=== PATIENT | female | born 1940 | race Caucasian/White ===

== ENCOUNTER 2016-12-08 15:31 | Inpatient (IN) | payer OTHER, MEDICARE ==
[~2016-12-08] VITALS: Ht 157.5 cm; Wt 61.0 kg
[2016-12-14] MEDS ORDERED: COZA50TA PO (11:57)
[2016-12-14] MEDS ORDERED: INSU1.2I SQ (11:57)
[2016-12-14] MEDS ORDERED: OMEP20TA PO (11:57)
[2016-12-14] MEDS ORDERED: ASPI325T PO (11:57)
[2016-12-14] MEDS ORDERED: PRAV20TA2 PO (11:57)
[2016-12-14] MEDS ORDERED: VITA100018 PO (11:57)
[2016-12-14] MEDS ORDERED: SITA1TAB2 PO (11:57)
[2016-12-14] MEDS ORDERED: METO50TA11 PO (11:57)
[2016-12-16] MEDS ORDERED: PROPOFOL 200 MG/20 ML AMP IV ONE (12:00)
[2016-12-16] MEDS ORDERED: metroNIDAZOLE 500 MG INJ 100 ML IV SCH (12:00)
[2016-12-16] MEDS ORDERED: PHENYLEPH/NS 1000 MCG/10 ML SYR IV ONE (12:00)
[2016-12-16] MEDS ORDERED: LACTATED RINGER'S 1000 ML INJ 1,000 ML IV ONE (12:00)
[2016-12-16] MEDS ORDERED: ceFAZolin 1,000 MG/NS 100 ML IV SCH ×2 (12:00)
[2016-12-16] MEDS ORDERED: ONDANSETRON HCL 4 MG/2 ML VIAL IV PUSH ONE (12:00)
[2016-12-16 12:08] VITALS: BP 168/69; PULSE 74; RESP 18; TEMP 98.7; O2SAT 99
[2016-12-16] MEDS ORDERED: CHLORHEXIDINE GLUCONATE 2 % 1 PACK (2 CLOTHS) TOPICAL PRN (12:15)
[2016-12-16] MEDS ORDERED: ALVIMOPAN 12 MG CAPSULE - On Call PO SCH (12:15)
[2016-12-16] MEDS ORDERED: DEXT 5%-NACL 0.9% 1000 ML INJ 1,000 ML IV SCH (12:15)
[2016-12-16] MEDS ORDERED: INSULIN HUMAN REGULAR 1,000 UNITS/10 ML VIAL SQ PRN (12:15)
[2016-12-16] MEDS ORDERED: METOPROLOL TARTRATE 25 MG TAB PO PRN (12:15)
[2016-12-16] MEDS ORDERED: SODIUM CHLORID 0.9% 500 ML IV PRN (12:15)
[2016-12-16] MEDS ORDERED: LACTATED RINGER'S 1000 ML IV PRN (12:15)
[2016-12-16] MEDS ORDERED: POVIDONE IODINE 5% (ANTISEPSIS KIT) 4 APPLICATIONS EACH NARE PRN (12:15)
--- NOTE | 2016-12-16 13:05 | PD.HP.UP ---
H&P Update Note The Pre-Admit History and Physical Examination regarding the above named patient was reviewed (including, but not limited to, vital signs, heart, lungs, co-morbid conditions), and upon re-examination it is noted that: the patient's condition has not significantly changed since the last examination. Uriah Santana MD Dec 16, 2016 13:05
[2016-12-16] MEDS ORDERED: FAMOTIDINE 20 MG/2 ML VIAL ONE (13:24)
[2016-12-16] MEDS: DEXTROSE 5%-LACTATED RING INJ 1,000 ML IV SCH (14:44)
[2016-12-16] MEDS ORDERED: POTASSIUM CHLOR 20 MEQ PREMIX 100 ML IV PRN (14:45)
[2016-12-16] MEDS ORDERED: MORPHINE SULFATE 30 MG/30 ML PCA IV SCH (14:45)
[2016-12-16] MEDS ORDERED: BENZOCAINE 6 MG/MENTHOL 10 MG LOZENGE BUCCAL PRN (14:45)
[2016-12-16] MEDS: PCA - TOTAL MG MORPHINE DELIVERED PER SHIFT SCH ×2 (14:45→21:15)
[2016-12-16] MEDS ORDERED: ONDANSETRON HCL 4 MG/2 ML VIAL IV PRN (14:45)
[2016-12-16] MEDS ORDERED: ACETAMINOPHEN/HYDROcodone 325 MG/5 MG TAB PO PRN ×2 (14:45)
[2016-12-16] MEDS ORDERED: NALOXONE HCL 0.4 MG/ML AMP IV PRN (14:45)
[2016-12-16] MEDS ORDERED: SODIUM CHLORIDE 0.9% FLUSH 10 ML FLUSH IV FLUSH PRN (14:45)
[2016-12-16] MEDS ORDERED: POTASSIUM CHLOR 40 MEQ PREMIX 100 ML IV PRN (14:45)
[2016-12-16] MEDS ORDERED: Post-op Orders (for Pharmacy) MISC XX ONE (14:55)
[2016-12-16] MEDS ORDERED: DO NOT ADM ANY ANTICOAGULANT DRUGS PRN (14:55)
[2016-12-16] MEDS ORDERED: fentaNYL CITRATE 250 MCG/5 ML AMP ONE (15:02)
[2016-12-16] MEDS ORDERED: METOCLOPRAMIDE HCL 10 MG/2 ML VIAL ONE (15:03)
[2016-12-16 15:16] LABS: AUTOMATED NEUTROPHIL # 4.6 TH/MM3 (1.8-7.7); BASOPHIL # 0.1 TH/MM3 (0-0.2); BASOPHIL % 0.9 % (0.0-2.0); EOSINOPHIL # 0.1 TH/MM3 (0-0.4); EOSINOPHIL % 1.4 % (0.0-4.0); HEMATOCRIT 34.1 % (35.0-46.0); HEMO FLAGS DIFF FINAL; LYMPH % 24.7 % (9.0-44.0); LYMPHOCYTE # 1.7 TH/MM3 (1.0-4.8); MEAN CORPUSCULAR HEMOGLOBIN 26.6 PG (27.0-34.0); MEAN CORPUSCULAR HGB CONC 32.4 % (32.0-36.0); MONO % 6.8 % (0.0-8.0); NEUT % 66.2 % (16.0-70.0); PLATELET COUNT 213 TH/MM3 (150-450); RED BLOOD COUNT 4.16 MIL/MM3 (4.00-5.30); RED CELL DISTRIBUTION WIDTH 14.6 % (11.6-17.2)
[2016-12-16] MEDS ORDERED: *ENALAPRILAT 1.25 MG/ML VIAL PERIprocedural Use ONLY ONE (15:36)
[2016-12-16 15:46] LABS: BICARBONATE 23.7 MEQ/L (21.0-32.0); POTASSIUM 4.6 MEQ/L (3.5-5.1)
[2016-12-16] MEDS ORDERED: *ONDANSETRON 4 MG VIAL PERIprocedural Use ONLY ONE (16:25)
[2016-12-16] MEDS ORDERED: METOCLOPRAMIDE HCL 10 MG/2 ML VIAL IVS SCH (18:00)
--- NOTE | 2016-12-16 18:00 | MP ---
cc: BETTY SANTANA M.D. DATE OF SURGERY: 12/16/2016. PREOPERATIVE DIAGNOSIS: Fecal impaction and constipation. POSTOPERATIVE DIAGNOSIS: Chronic fecal impaction and constipation. PROCEDURE: Diverting loop sigmoid colostomy with disimpaction and irrigation of distal colon. SURGEON: Betty Santana M.D. EVALUATION ENGINEER: Raheel Crabtree MD. ESTIMATED BLOOD LOSS: Minimal. OPERATIVE FINDINGS: This patient has had a chronic fecal impaction, sometimes not moving her bowels for months. She has undergone multiple disimpactions by Dr. Crabtree. For this reason, discussion with her and her family, we recommended diverting sigmoid colostomy. All other measures had been previously tried including laxatives and the patient was totally unresponsive due to chronicity. At surgery, the rectum was first disimpacted of all stool that could be removed and then the diverting loop colostomy was done. A distal washout was done prior to closing the distal limb and maturing the colostomy. DESCRIPTION OF THE PROCEDURE IN DETAIL: The patient was placed on the table in the supine position after adequate general endotracheal anesthesia, her legs were placed in the perineal lithotomy position and a rectal exam was done disimpacting the stool from the rectum of a large quantity of stool fully emptying the rectum; however, there was still stool up in the sigmoid. At this point, the abdomen was prepped and draped in the usual manner and a circular incision was made in the left lower quadrant and the anterior rectus sheath was incised longitudinally. The rectus muscles were split and the posterior sheath was opened entering the peritoneal cavity. The sigmoid colon was identified in the left gutter and pulled up with a Heri clamp and with the redundancy of the colon it was brought through the stoma site and a window was created in the mesentery with electrocautery. Once the sigmoid was mobilized a short distance along its lateral pelvic peritoneum, it easily stayed up in the wound and no colostomy bar was necessary. The colon was then opened transversely and a 24-Persian red rubber catheter was placed down the distal limb and it was irrigated thoroughly with a liter of saline solution with Dr. Crabtree below and all stool in the lower sigmoid and rectum was evacuated until the effluent was clear. Once this was done, the distal segment was stapled closed with a TX-60 blue staple height stapler and then the colostomy was matured with interrupted 3-0 Vicryl sutures. A 57 mm colostomy appliance was applied. Sponge, needle and instrument counts were correct. The estimated blood loss was minimal. The patient tolerated the procedure well and left the operating room in good condition. MD TEMO Cedeño/CHECO /3:59 PM /5:58 PM
[2016-12-16 20:00] VITALS: BP 174/88; PULSE 74; PULSE 77; RESP 20; TEMP 97.7; O2SAT 98
[2016-12-16 21:00] VITALS: PULSE 74
[2016-12-16] MEDS: SODIUM CHLORIDE 0.9% FLUSH 10 ML FLUSH IV FLUSH SCH (21:00)
[2016-12-16] MEDS: METOCLOPRAMIDE HCL 10 MG/2 ML VIAL IVS SCH (21:00)
[2016-12-16] MEDS: ENALAPRILAT 1.25 MG/ML VIAL IV PUSH PRN (21:26)
[2016-12-16 22:00] VITALS: PULSE 74
[2016-12-16 23:00] VITALS: PULSE 74
[2016-12-17] VITALS (17 sets, daily range): BP systolic 144–171; BP diastolic 63–89; PULSE 68–86; RESP 16–20; TEMP 96.9–98.6; O2SAT 95–100
[2016-12-17] MEDS: DEXTROSE 5%-LACTATED RING INJ 1,000 ML IV SCH ×2 (00:46→10:44)
[2016-12-17] MEDS: METOCLOPRAMIDE HCL 10 MG/2 ML VIAL IVS SCH ×4 (03:00→22:07)
[2016-12-17] MEDS: PCA - TOTAL MG MORPHINE DELIVERED PER SHIFT SCH ×2 (03:01→14:00)
[2016-12-17] MEDS: ENALAPRILAT 1.25 MG/ML VIAL IV PUSH PRN (03:11)
[2016-12-17 06:47] LABS: AUTOMATED NEUTROPHIL # 4.7 TH/MM3 (1.8-7.7); BASOPHIL % 0.7 % (0.0-2.0); EOSINOPHIL % 0.3 % (0.0-4.0); HEMATOCRIT 35.1 % (35.0-46.0); HEMO FLAGS DIFF FINAL; LYMPH % 20.3 % (9.0-44.0); LYMPHOCYTE # 1.4 TH/MM3 (1.0-4.8); MEAN CELL VOLUME 81.6 FL (80.0-100.0); MEAN CORPUSCULAR HEMOGLOBIN 27.2 PG (27.0-34.0); MEAN CORPUSCULAR HGB CONC 33.3 % (32.0-36.0); MONO % 8.6 % (0.0-8.0); NEUT % 70.1 % (16.0-70.0); PLATELET COUNT 213 TH/MM3 (150-450); RED CELL DISTRIBUTION WIDTH 14.8 % (11.6-17.2); WHITE BLOOD COUNT 6.8 TH/MM3 (4.0-11.0)
[2016-12-17 07:10] LABS: BICARBONATE 23.7 MEQ/L (21.0-32.0); POTASSIUM 4.6 MEQ/L (3.5-5.1)
[2016-12-17] MEDS: NICOTINE 21 MG/24 HR PATCH T-DERMAL SCH (09:00)
[2016-12-17] MEDS: ALVIMOPAN 12 MG CAPSULE - Post-op dosing PO SCH ×2 (09:00→22:07)
[2016-12-17] MEDS: SODIUM CHLORIDE 0.9% FLUSH 10 ML FLUSH IV FLUSH SCH ×2 (09:00→22:08)
[2016-12-17] MEDS: PANTOPRAZOLE SODIUM 40 MG VIAL IVP SCH (09:00)
--- NOTE | 2016-12-17 15:47 | HHI.PR ---
Subjective Remarks Had urinary retention this AM requiring garcia with 1000cc. Denies pain Objective Vital Signs Date Time Temp Pulse Resp B/P Pulse Ox O2 Delivery O2 Flow Rate FiO2 12/17/16 11:05 98.2 78 16 146/71 97 12/17/16 11:00 77 12/17/16 07:00 73 12/17/16 07:00 98.6 84 16 145/65 97 12/17/16 06:00 76 12/17/16 05:00 70 12/17/16 04:00 74 12/17/16 04:00 98.1 73 20 171/71 95 12/17/16 03:01 18 12/17/16 03:00 68 12/17/16 02:00 72 12/17/16 01:00 70 12/17/16 00:00 74 12/17/16 00:00 98.1 72 20 165/75 95 12/16/16 23:00 74 12/16/16 22:00 74 12/16/16 21:15 20 12/16/16 21:00 74 12/16/16 20:00 97.7 74 20 174/88 98 12/16/16 20:00 77 12/16/16 16:30 70 16 184/79 100 12/16/16 16:00 63 16 172/79 100 I/O 12/16/16 12/16/16 12/16/16 12/17/16 12/17/16 12/17/16 06:59 14:59 22:59 06:59 14:59 22:59 Intake Total 1000 ml 1186 ml Output Total 275 ml 200 ml Balance 725 ml 986 ml Intake Oral 240 ml IV Total 946 ml Other 1000 ml Output Urine Total 200 ml Estimated Blood Loss 25 ml Other 250 ml # Voids 0 # Bowel Movements 0 Result Diagram: 12/17/16 0615 12/17/1615 Objective Remarks VS-S Abd: soft,stoma pink Assessment and Plan Assessment and Plan Stable post closed loop colostomy D/C in AM after removing garcia Needs colostomy supplies and teaching Needs [facility] for supplies and teaching Uriah Santana MD Dec 17, 2016 15:47
--- NOTE | 2016-12-17 15:50 | HHI.FF ---
Face to Face Verification Diagnosis: (1) Colostomy status Home Health Nursing Order: Medical education Wound care and dressing changes Instructions: Pt needs colostomy supplies and teaching daily I have seen patient Sonja Hope on 12/17/16. My clinical findings support the need for the requested home health care services because: Deconditioned w/ increased weakness Limited ability to care for self I certify that my clinical findings support that this patient is homebound because: Post-op weakness Unsteady gait/balance Need for psychosocial assistance Uriah Santana MD Dec 17, 2016 15:49
[2016-12-17] MEDS: LACTATED RINGER'S 1000 ML INJ 1,000 ML IV SCH (16:00)
[2016-12-17] MEDS ORDERED: ALVIMOPAN 12 MG CAPSULE PO SCH (21:00)
[2016-12-17] MEDS ORDERED: REMOVE OLD NICODERM (NICOTINE) PATCH T-DERMAL SCH (21:00)
[2016-12-18 00:18] VITALS: BP 152/67; PULSE 85; RESP 17; TEMP 98.9; O2SAT 94
[2016-12-18 04:21] VITALS: BP 165/78; PULSE 78; RESP 16; TEMP 98.8; O2SAT 94
[2016-12-18] MEDS: METOCLOPRAMIDE HCL 10 MG/2 ML VIAL IVS SCH ×3 (04:39→16:31)
[2016-12-18 07:58] LABS: BASOPHIL % 0.7 % (0.0-2.0); EOSINOPHIL # 0.1 TH/MM3 (0-0.4); HEMATOCRIT 35.4 % (35.0-46.0); HEMO FLAGS DIFF FINAL; LYMPH % 18.8 % (9.0-44.0); LYMPHOCYTE # 1.3 TH/MM3 (1.0-4.8); MEAN CELL VOLUME 82.8 FL (80.0-100.0); MEAN CORPUSCULAR HEMOGLOBIN 26.9 PG (27.0-34.0); MEAN CORPUSCULAR HGB CONC 32.5 % (32.0-36.0); MONO % 9.3 % (0.0-8.0); NEUT % 70.2 % (16.0-70.0); PLATELET COUNT 206 TH/MM3 (150-450); RED BLOOD COUNT 4.28 MIL/MM3 (4.00-5.30); RED CELL DISTRIBUTION WIDTH 14.6 % (11.6-17.2); WHITE BLOOD COUNT 7.1 TH/MM3 (4.0-11.0)
[2016-12-18 08:00] VITALS: BP 182/77; PULSE 84; RESP 16; TEMP 98.4; O2SAT 91
[2016-12-18 08:12] LABS: BICARBONATE 26.3 MEQ/L (21.0-32.0); POTASSIUM 4.1 MEQ/L (3.5-5.1)
[2016-12-18] MEDS: ALVIMOPAN 12 MG CAPSULE - Post-op dosing PO SCH (08:37)
[2016-12-18] MEDS: NICOTINE 21 MG/24 HR PATCH T-DERMAL SCH (08:37)
[2016-12-18] MEDS: PANTOPRAZOLE SODIUM 40 MG VIAL IVP SCH (08:37)
[2016-12-18] MEDS: SODIUM CHLORIDE 0.9% FLUSH 10 ML FLUSH IV FLUSH SCH (08:37)
[2016-12-18] MEDS ORDERED: PRAVASTATIN SOD 20 MG TAB PO SCH (09:00)
[2016-12-18] MEDS ORDERED: INSULIN GLARGINE SQ SCH (09:00)
[2016-12-18] MEDS ORDERED: METOPROLOL SUCCINATE 50 MG EXTENDED RELEASE TAB PO SCH (09:00)
[2016-12-18] MEDS ORDERED: ASPIRIN 325 MG TAB PO SCH (09:00)
--- NOTE | 2016-12-18 11:09 | HHI.PR ---
Subjective Remarks POD#2 s/p diverting colostomy comfortable, wants to go home Objective Vital Signs Date Time Temp Pulse Resp B/P Pulse Ox O2 Delivery O2 Flow Rate FiO2 12/18/16 08:00 98.4 84 16 182/77 91 12/18/16 04:21 98.8 78 16 165/78 94 12/18/16 00:18 98.9 85 17 152/67 94 12/17/16 20:07 96.9 83 17 144/63 96 12/17/16 17:35 96.9 86 16 150/69 100 12/17/16 16:00 80 12/17/16 15:00 98.4 73 16 161/89 97 12/17/16 15:00 85 12/17/16 14:00 76 12/17/16 13:00 74 12/17/16 12:00 74 I/O 12/17/16 12/17/16 12/17/16 12/18/16 12/18/16 12/18/16 07:00 15:00 23:00 07:00 15:00 23:00 Intake Total 1186 ml 2280 ml 360 ml Output Total 200 ml 3700 ml 2200 ml Balance 986 ml -1420 ml -1840 ml Intake Oral 240 ml 1380 ml 360 ml IV Total 946 ml 900 ml Output Urine Total 200 ml 3700 ml 2200 ml Stool Total 0 ml 0 ml Result Diagram: 12/18/16 0632 12/18/16 0632 Objective Remarks Abdomen soft, nondistended, tender Stoma pink - flatus in bag Assessment and Plan Assessment and Plan Doing well Can be discharged once VN arranged for new stoma Does not want script for pain pills Damari Peoples MD Dec 18, 2016 11:09
[2016-12-18] MEDS: LACTATED RINGER'S 1000 ML INJ 1,000 ML IV SCH (11:49)
[2016-12-18 12:00] VITALS: BP 165/72; PULSE 82; RESP 16; TEMP 97.1; O2SAT 93
[2016-12-18 16:00] VITALS: BP 193/97; PULSE 78; RESP 16; TEMP 97.4; O2SAT 97
== END 2016-12-18 19:34 | disposition home health service (06) | DRG 331 ==
LOC: HSDI 12-16 11:11 → HCIS 12-16 16:48 → N07B 12-17 17:40
PROVIDERS: ADMIT Colon & Rectal Surgery; ATTEND Colon & Rectal Surgery
PROC: 0DCP7ZZ Extirpation of Matter from Rectum, Via Natural or Artificial Opening (ICD-10-PCS; 2016-12-16)
PROC: 0D1N0Z4 Bypass Sigmoid Colon to Cutaneous, Open Approach (ICD-10-PCS; principal; 2016-12-16 13:28)
DX: K56.41 Fecal impaction (principal); G62.9 Polyneuropathy, unspecified; E11.9 Type 2 diabetes mellitus without complications; I10 Essential (primary) hypertension; E78.5 Hyperlipidemia, unspecified; F17.210 Nicotine dependence, cigarettes, uncomplicated; Z86.73 Personal history of transient ischemic attack (TIA), and cerebral infarction without residual deficits; K21.9 Gastro-esophageal reflux disease without esophagitis; R33.9 Retention of urine, unspecified
CPT/HCPCS: 36415; 71020; 76937; 80048; 80053; 81001; 85025; 85610; 85730; 86850; 86900; 86901; 87086; 93005; 94150; C9113; J0690; J2370; J2405; J2765; J3010; J7120; J7121

== ENCOUNTER → 2016-12-14 | Outpatient (CLI) | payer OTHER ==
[~2016-12-14] MED LIST: ASPI325T PO; COZA50TA PO; INSU1.2I SQ; JANU50TA PO; LISI2.5T3 PO; LOSA50TA PO; METO25 PO; METO50TA11 PO; OMEP20TA PO; OMEP20TA39 PO; PRAV20TA2 PO; SITA1TAB2 PO; VITA100018 PO
[2016-12-14 13:01] LABS: AUTOMATED NEUTROPHIL # 4.6 TH/MM3 (1.8-7.7); BASOPHIL # 0.1 TH/MM3 (0-0.2); EOSINOPHIL # 0.1 TH/MM3 (0-0.4); EOSINOPHIL % 1.2 % (0.0-4.0); HEMATOCRIT 37.6 % (35.0-46.0); HEMO FLAGS DIFF FINAL; LYMPH % 23.3 % (9.0-44.0); LYMPHOCYTE # 1.6 TH/MM3 (1.0-4.8); MEAN CELL VOLUME 82.7 FL (80.0-100.0); MEAN CORPUSCULAR HEMOGLOBIN 26.8 PG (27.0-34.0); MEAN CORPUSCULAR HGB CONC 32.4 % (32.0-36.0); MONO % 7.9 % (0.0-8.0); NEUT % 66.6 % (16.0-70.0); PLATELET COUNT 225 TH/MM3 (150-450); RED BLOOD COUNT 4.54 MIL/MM3 (4.00-5.30); RED CELL DISTRIBUTION WIDTH 14.9 % (11.6-17.2)
[2016-12-14 13:05] LABS: APTT (PATIENT) 30.6 SEC (24.3-30.1); INTERNATIONAL NORMALIZED RATIO 0.9 RATIO; PROTHROMBIN TIME - PATIENT 10.4 SEC (9.8-11.6)
[2016-12-14 13:16] LABS: BACTERIA, URINE MOD /hpf; BLOOD, URINE NEG (NEG); COMMENT (UR) CULTURE INDICATED; CULTURE IF INDICATED CULTURE INDICATED; GLUCOSE,URINE NEG (NEG); KETONE, URINE NEG (NEG); MUCUS URINE FEW /lpf (OCC); NITRITE,URINE NEG (NEG); SQUAMOUS EPITHELIAL CELL URINE 1 /hpf (0-5); URINE COLOR YELLOW (YELLW/STRAW)
[2016-12-14 13:23] LABS: ANION GAP 8 MEQ/L (5-15); AST (GOT) 9 U/L (15-37); BICARBONATE 25.2 MEQ/L (21.0-32.0); BLOOD UREA NITROGEN 26 MG/DL (7-18); CHLORIDE 107 MEQ/L (98-107); GLOMERULAR FILTRATION RATE 36 ML/MIN (>89); GLUCOSE,FASTING 101 MG/DL (74-99); POTASSIUM 5.2 MEQ/L (3.5-5.1); SODIUM (NA) 140 MEQ/L (136-145)
[2016-12-14 13:25] LABS: ALT (GPT) 13 U/L (10-53)
--- NOTE | 2016-12-14 13:25 | RADRPT ---
EXAM DATE/TIME: 12/14/2016 13:02 [place] COMPARISON: CHEST SINGLE AP, August 14, 2012, 13:46. INDICATIONS : Evaluate for pneumonia, pneumothorax or communicable disease. Preop chest for abdominal surgery on , diverting colostomy, rectal washout. No chest complaints at this time MEDICAL HISTORY : Hypertension. Shingles. Diabetes mellitus type II. SVT SURGICAL HISTORY : parathyroid surgery ENCOUNTER: Initial ACUITY: 1 day PAIN SCORE: 0/10 LOCATION: Bilateral chest FINDINGS: Area of consolidation in the left upper lobe appears less dense on today's and previous. No new areas of infiltrate are seen. The heart is normal in size. There are mild chronic interstitial changes wit hin the pulmonary parenchyma. The mediastinal contours are within normal limits. The osseous structur es are intact CONCLUSION: 1. Chronic appearing interstitial changes. No acute abnormality. Bert Bowens MD on December 14, 2016 at 13:22 Board Certified Radiologist. This report was verified electronically.
[2016-12-14 13:27] LABS: ALKALINE PHOSPHATASE 90 U/L (45-117); TOTAL BILIRUBIN ADULT 0.5 MG/DL (0.2-1.0)
--- NOTE | 2016-12-15 17:13 | EKG ---
Date Performed: 12/14/2016 Time Performed: 11:48:04 PTAGE: 76 years EKG: Sinus rhythm NORMAL ECG NO PREVIOUS TRACING DOCTOR: Charity Christianson Interpretating Date/Time 12/15/2016 17:12:22
== END ==
LOC: CPRE 11:15
PROVIDERS: ATTEND Colon & Rectal Surgery
DX: Z01.812 Encounter for preprocedural laboratory examination (principal); Z01.811 Encounter for preprocedural respiratory examination; Z01.810 Encounter for preprocedural cardiovascular examination; K59.00 Constipation, unspecified; R82.99 Other abnormal findings in urine; Z79.01 Long term (current) use of anticoagulants
CPT/HCPCS: 36415; 71020; 80053; 81001; 85025; 85610; 85730; 86850; 86900; 86901; 87086; 93005

== ENCOUNTER 2017-11-09 21:04 | Emergency (ER) | payer OTHER ==
[~2017-11-09 21:04] MED LIST changes: +ASPI-183 PO; -ASPI325T PO; -JANU50TA PO; -LISI2.5T3 PO; -LOSA50TA PO; +METO1TAB9 PO; -METO25 PO; -METO50TA11 PO; -OMEP20TA PO; -OMEP20TA39 PO; +OMEP20TA93 PO
[2017-11-09 21:07] VITALS: BP 184/89; PULSE 90; RESP 20; TEMP 103; O2SAT 91
[2017-11-09 21:19] VITALS: BP 167/70; PULSE 90; RESP 20; O2SAT 98
--- NOTE | 2017-11-09 21:37 | PD ---
HPI Chief Complaint: Fever Time Seen by Provider: 21:22 Travel History International Travel<30 days: No Contact w/Intl Traveler<30days: No Traveled to known affect area: No History of Present Illness HPI 77-year-old female complains of fever and generalized malaise and weakness. Patient was seen by local nurse practitioner about 4 days ago and was diagnosed with UTI. Patient was given prescription for amoxicillin. Patient states that she had nausea vomiting intermittently after taking amoxicillin. Patient was seen again today by nurse practitioner and advised to stop the amoxicillin. Patient states that she started having fever today and had increasing lethargy, generalized malaise and weakness. Patient denies any headache. Patient denies any earaches or sore throat. Patient denies any neck pain. Patient denies any coughing congestion. Patient denies abdominal pain. Patient denies any dysuria frequency. Patient denies any back pain. Patient has history of hypertension, diabetes, hyperlipidemia. Patient also has history of SVT. Patient has colostomy in place. Patient is a smoker. 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) Genitourinary: No Hepatitis: No Hiatal Hernia: No Hypertension: Yes Immune Disorder: No Medical other: Yes (GERD, CHOL) Musculoskeletal: No Neurologic: Yes (TIA 2011) Psychiatric: No Respiratory: No Seizures: No Shingles: Yes Thyroid Disease: No Tetanus Vaccination: < 5 Years Influenza Vaccination: No Past Surgical History Abdominal Surgery: No AICD: No Cardiac Surgery: No Ear Surgery: No Endocrine Surgery: Yes Genitourinary Surgery: No Gynecologic Surgery: No Joint Replacement: No Oral Surgery: Yes (all teet removed) Pacemaker: No Thoracic Surgery: No Other Surgery: Yes (EXPLORATORY PARATHYROID, L THUMB TENDON REPAIR, colostomy) Social History Alcohol Use: No Tobacco Use: Yes (2 PPD) Substance Use: No Allergies-Medications (Allergen,Severity, Reaction): Coded Allergies: Sulfa (Sulfonamide Antibiotics) (Unverified Adverse Reaction, Unknown, 11/09) PT STATES SHE WENT INTO A HYPOGLYCEMIA COMA AFTER RECEIVING DRUG AT 19 YOA Reported Meds & Prescriptions Reported Meds & Active Scripts Active Reported Pravastatin 20 Mg Tab 20 Mg PO DAILY Brooke Castillo Pen Inj (Insulin Glargine) 300 Unit/Ml Pen 10 Units SQ DAILY Januvia (Sitagliptin Phosphate) 100 Mg Tab 100 Mg PO DAILY Cozaar (Losartan Potassium) 50 Mg Tab Mg PO DAILY Metoprolol Succinate ER 24 HR (Metoprolol Succinate) 50 Mg Tab 50 Mg PO DAILY Omeprazole 20 Mg Tab 20 Mg PO DAILY Vitamin D3 (Cholecalciferol) 1,000 Unit Tab 1,000 Units PO DAILY Aspirin 325 Mg Tab 325 Mg PO DAILY Review of Systems General / Constitutional: Positive: Fever Eyes: No: Visual changes HENT: No: Headaches Cardiovascular: No: Chest Pain or Discomfort Respiratory: No: Shortness of Breath Gastrointestinal: No: Abdominal Pain Genitourinary: No: Dysuria Musculoskeletal: No: Pain Skin: No Rash Neurologic: No: Weakness Psychiatric: No: Depression Endocrine: No: Polydipsia Hematologic/Lymphatic: No: Easy Bruising Physical Exam Narrative GENERAL: Well-nourished, well-developed patient. SKIN: Focused skin assessment warm/dry. HEAD: Normocephalic. EYES: No scleral icterus. No injection or drainage. NECK: Supple, trachea midline. No JVD or lymphadenopathy. CARDIOVASCULAR: Regular rate and rhythm without murmurs, gallops, or rubs. RESPIRATORY: Breath sounds equal bilaterally. No accessory muscle use. GASTROINTESTINAL: Abdomen soft, non-tender, nondistended. MUSCULOSKELETAL: No cyanosis, or edema. BACK: Nontender without obvious deformity. No CVA tenderness. Neurologic exam: Patient is awake and alert oriented 3. No obvious focal neurological deficit. Data Data Last Documented VS Vital Signs Date Time Temp Pulse Resp B/P (MAP) Pulse Ox O2 Delivery O2 Flow Rate FiO2 11/09/17 23:07 100.9 82 20 134/56 (82) 96 Room Air 11/09/17 21:52 2.00 Orders Orders Electrocardiogram (11/09/17 21:29) Complete Blood Count With Diff (11/09/17 21:29) Comprehensive Metabolic Panel (11/09/17 21:29) Prothrombin Time / Inr (Pt) (11/09/17 21:29) Act Partial Throm Time (Ptt) (11/09/17 21:29) Blood Culture (11/09/17 21:29) Urinalysis - C+S If Indicated (11/09/17 21:29) Cath For Specimen (11/09/17 21:29) Thyroid Stimulating Hormone (11/09/17 21:29) Chest, Single Ap (11/09/17 21:29) Iv Access Insert/Monitor (11/09/17 21:29) Ecg Monitoring (11/09/17 21:29) Oximetry (11/09/17 21:29) Lactic Acid (11/09/17 21:32) Acetaminophen (Tylenol) (11/09/17 21:45) Sodium Chlor 0.9% 1000 Ml Inj (Ns 1000 M (11/09/17 21:45) Influenzae A/B Antigen (11/09/17 22:44) Calcium Gluconate Inj (Calcium Gluconate (11/09/17 22:45) Sodium Chlor 0.9% 1000 Ml Inj (Ns 1000 M (11/09/17 23:00) Levofloxacin (Levaquin) (11/09/17 23:45) Labs Laboratory Tests Test 11/09/17 21:34 11/09/17 21:42 11/09/17 22:22 White Blood Count 10.5 TH/MM3 Red Blood Count 4.80 MIL/MM3 Hemoglobin 12.5 GM/DL Hematocrit 38.5 % Mean Corpuscular Volume 80.2 FL Mean Corpuscular Hemoglobin 26.1 PG Mean Corpuscular Hemoglobin Concent 32.5 % Red Cell Distribution Width 14.4 % Platelet Count 188 TH/MM3 Mean Platelet Volume 10.1 FL Neutrophils (%) (Auto) 86.5 % Lymphocytes (%) (Auto) 8.4 % Monocytes (%) (Auto) 4.7 % Eosinophils (%) (Auto) 0.0 % Basophils (%) (Auto) 0.4 % Neutrophils # (Auto) 9.1 TH/MM3 Lymphocytes # (Auto) 0.9 TH/MM3 Monocytes # (Auto) 0.5 TH/MM3 Eosinophils # (Auto) 0.0 TH/MM3 Basophils # (Auto) 0.0 TH/MM3 CBC Comment DIFF FINAL Differential Comment Prothrombin Time 10.7 SEC Prothromb Time International Ratio 1.1 RATIO Activated Partial Thromboplast Time 26.0 SEC Blood Urea Nitrogen 56 MG/DL Creatinine 2.30 MG/DL Random Glucose 234 MG/DL Total Protein 7.4 GM/DL Albumin 3.3 GM/DL Calcium Level 7.4 MG/DL Alkaline Phosphatase 81 U/L Aspartate Amino Transf (AST/SGOT) 9 U/L Alanine Aminotransferase (ALT/SGPT) 16 U/L Total Bilirubin 0.3 MG/DL Sodium Level 132 MEQ/L Potassium Level 3.9 MEQ/L Chloride Level 99 MEQ/L Carbon Dioxide Level 21.9 MEQ/L Anion Gap 11 MEQ/L Estimat Glomerular Filtration Rate 21 ML/MIN Protein Corrected Calcium 7.3 MG/DL Thyroid Stimulating Hormone 3rd Gen 0.476 uIU/ML Lactic Acid Level 1.1 mmol/L Urine Color YELLOW Urine Turbidity CLEAR Urine pH 5.0 Urine Specific Tad 1.025 Urine Protein TRACE mg/dL Urine Glucose (UA) NEG mg/dL Urine Ketones NEG mg/dL Urine Occult Blood NEG Urine Nitrite NEG Urine Bilirubin NEG Urine Urobilinogen 0.2 MG/DL Urine Leukocyte Esterase NEG Urine WBC 0-2 /hpf Urine Squamous Epithelial Cells 0-5 /hpf Microscopic Urinalysis Comment CULT NOT INDICATED MDM Medical Decision Making Medical Screen Exam Complete: Yes Emergency Medical Condition: Yes Interpretation(s) Last Impressions Chest X-Ray 11/09/172128 Signed Impressions: CONCLUSION: No acute cardiopulmonary disease. 22:41 PM. CBC WBC 10.5. Hemoglobin 12.5 hematocrit 38.5. 86 neutrophil. Sodium 132. BUN 56. Creatinine 2.3. GFR 21. Glucose 234. Lactic acid 1.1. Protein corrected calcium 7.3. UA is negative. Differential Diagnosis Differential diagnosis including viral syndrome, bronchitis, pneumonia, UTI, sepsis. Narrative Course 77-year-old female with fever, generalized malaise and weakness. Normal saline solution 1 25 cc an hour. Calcium gluconate 1 g IV given. Normal saline solution 1 L IV bolus. Levaquin 500 mg p.o. given. Patient refused admission. Diagnosis Primary Impression: Fever of undetermined origin Additional Impressions: Dehydration Acute kidney injury Hypocalcemia Patient Instructions: General Instructions Additional Instructions: Levaquin 500 mg daily as directed. Tylenol for fever. Encourage p.o. fluid. Follow-up with personal physician. Return if persistent problem or worse. Med/Other Pt SpecificInfo: Prescription(s) given Scripts Levofloxacin (Levaquin) 500 Mg Tablet 500 MG PO DAILY for Infection, #7 TAB 0 Refills Prov: Travis,Hung MD 11/10/17 Disposition: 01 DISCHARGE HOME Condition: Stable Monty Robles MD Nov 09, 2017 21:37
[2017-11-09] MEDS ORDERED: ACETAMINOPHEN 325 MG TAB PO ONE (21:45)
[2017-11-09] MEDS: SODIUM CHLOR 0.9% 1000 ML INJ 1,000 ML IV SCH ×2 (21:48→23:03)
[2017-11-09 21:52] VITALS: O2SAT 96
[2017-11-09 21:53] LABS: AUTOMATED NEUTROPHIL # 9.1 TH/MM3 (1.8-7.7); BASOPHIL % 0.4 % (0.0-2.0); HEMATOCRIT 38.5 % (35.0-46.0); HEMOGLOBIN 12.5 GM/DL (11.6-15.3); LYMPH % 8.4 % (9.0-44.0); LYMPHOCYTE # 0.9 TH/MM3 (1.0-4.8); MEAN CELL VOLUME 80.2 FL (80.0-100.0); MEAN CORPUSCULAR HEMOGLOBIN 26.1 PG (27.0-34.0); MEAN CORPUSCULAR HGB CONC 32.5 % (32.0-36.0); MEAN PLATELET VOLUME 10.1 FL (7.0-11.0); MONO % 4.7 % (0.0-8.0); MONOCYTE # 0.5 TH/MM3 (0-0.9); NEUT % 86.5 % (16.0-70.0); PLATELET COUNT 188 TH/MM3 (150-450); RED CELL DISTRIBUTION WIDTH 14.4 % (11.6-17.2); WHITE BLOOD COUNT 10.5 TH/MM3 (4.0-11.0)
[2017-11-09 22:06] LABS: INTERNATIONAL NORMALIZED RATIO 1.1 RATIO; PROTHROMBIN TIME - PATIENT 10.7 SEC (9.8-11.6)
--- NOTE | 2017-11-09 22:09 | RADRPT ---
EXAM DATE: 11/09/2017 10:06 PM EDT AGE/SEX: 77 years / Female INDICATIONS: Fever starting today CLINICAL DATA: This is the patient's initial encounter. Patient reports that signs and symptoms have been present for 1 day and indicates a pain score of 0/10. MEDICAL/SURGICAL HISTORY: . Hypertension. Shingles. Diabetes mellitus type II. SVT . parathyr oid surgery COMPARISON: Chest x-ray 08/14/2012 . FINDINGS: A single AP view of the chest demonstrates the lungs to be symmetrically aerated without evidence of mass, infiltrate or effusion. The cardiomediastinal contours are unremarkable. Osseous structures a re intact. CONCLUSION: No acute cardiopulmonary disease. Electronically signed by: Pierce Prabhakar MD 11/09/2017 10:08 PM EDT
[2017-11-09 22:24] LABS: ALBUMIN 3.3 GM/DL (3.4-5.0); BICARBONATE 21.9 MEQ/L (21.0-32.0); CALCIUM 7.4 MG/DL (8.5-10.1); CREATININE 2.3 MG/DL (0.50-1.00); TOTAL BILIRUBIN ADULT 0.3 MG/DL (0.2-1.0); TOTAL PROTEIN 7.4 GM/DL (6.4-8.2)
[2017-11-09 22:26] LABS: CALCIUM-PROTEIN CORRECTED 7.3 MG/DL (8.5-10.1)
[2017-11-09 22:32] LABS: BILIRUBIN, URINE NEG (NEG); BLOOD, URINE NEG (NEG); GLUCOSE,URINE NEG (NEG); KETONE, URINE NEG (NEG); NITRITE,URINE NEG (NEG); URINE COLOR YELLOW (YELLW/STRAW); URINE LEUKOCYTE ESTERASE NEG (NEG)
[2017-11-09 22:42] LABS: SQUAMOUS EPITHELIAL CELL URINE 0-5 /hpf (0-5); WBC, URINE 0-2 /hpf (0-5)
[2017-11-09] MEDS ORDERED: CALCIUM GLUCONATE INJ 1 GM in DEXTROSE 5% IN WATER 100ML INJ 100 ML IV ONE ×2 (22:45)
[2017-11-09] MEDS ORDERED: SODIUM CHLOR 0.9% 1000 ML INJ 1,000 ML IV ONE (23:00)
[2017-11-09 23:07] VITALS: BP 134/56; PULSE 82; RESP 20; TEMP 100.9; O2SAT 96
[2017-11-09] MEDS ORDERED: LEVOFLOXACIN 500 MG TAB PO ONE (23:45)
[2017-11-10] MEDS ORDERED: LEVA500T33 PO (00:03)
[2017-11-10 00:27] VITALS: BP 137/68; TEMP 99.7
--- NOTE | 2017-11-10 18:32 | EKG ---
Date Performed: 11/09/2017 Time Performed: 21:54:08 PTAGE: 77 years EKG: Sinus rhythm Since previous tracing, no significant change noted ABNORMAL ECG PREVIOUS TRACING : 12/14/2016 11.48 DOCTOR: Rosa Azul Interpretating Date/Time 11/10/2017 18:31:26
== END 2017-11-10 00:42 | disposition home or self-care (01) ==
LOC: PHED 21:04
DX: R50.9 Fever, unspecified (principal); E86.0 Dehydration; N17.9 Acute kidney failure, unspecified; E83.51 Hypocalcemia; I10 Essential (primary) hypertension; E11.9 Type 2 diabetes mellitus without complications; E78.5 Hyperlipidemia, unspecified; Z86.73 Personal history of transient ischemic attack (TIA), and cerebral infarction without residual deficits; F17.200 Nicotine dependence, unspecified, uncomplicated
CPT/HCPCS: 71045; 80053; 81001; 83605; 84443; 85025; 85610; 85730; 87040; 87804; 93005; 96361; 96365; 99285; J0610; J7030